=== PATIENT | female | born 1950 | race Caucasian/White ===

== ENCOUNTER 2023-11-30 10:17 | Emergency (ER) | payer OTHER ==
[~2023-11-30] VITALS: Ht 152.4 cm; Wt 54.4 kg
[2023-11-30 10:33] VITALS: BP_SYST 122; PULSE 87; RESP 20; TEMP 98.3; O2SAT 98
[2023-11-30] MEDS ORDERED: IBUP-1969 PO (12:19)
[2023-11-30] MEDS ORDERED: TRAM50TA2 PO (12:19)
[2023-11-30 12:43] VITALS: BP_SYST 113; PULSE 83; RESP 16; TEMP 97.6; O2SAT 98
== END 2023-11-30 12:35 | disposition home or self-care (01) ==
LOC: SED 10:17
DX: S52.572A Other intraarticular fracture of lower end of left radius, initial encounter for closed fracture (principal); S09.90XA Unspecified injury of head, initial encounter; W19.XXXA Unspecified fall, initial encounter; Y93.89 Activity, other specified; Y92.89 Other specified places as the place of occurrence of the external cause; Y99.8 Other external cause status
CPT/HCPCS: 70450-TC; 82948; 99284